=== PATIENT | female | born 1945 | race Caucasian/White ===

== ENCOUNTER → 2016-05-23 | Outpatient (CLI) | payer OTHER, MEDICARE ==
[~2016-05-23] VITALS: Ht 160 cm; Wt 73.9 kg
[~2016-05-23] MED LIST: ADULT LOW DOSE81 MG PO; ALLEGRA60 MG PO; APAP500 PO; BIOTIN5 M1 PO; DEXILANT60 MG PO; OXYCODONE-ACET1 EACH PO; PRESERVISION T1 EACH PO; PROBIOTIC FORM1 EACH PO; PROTONIX40 M2 PO; TUMS PO
--- NOTE | ~2016-05-23 | HPC ---
[facility] [place] [address] PAIN MANAGEMENT CONSULTATION Name: ELEANOR REEDER Room #: REG SUZANNE Son.#: [id number] Admission: 05/23/16 Attend Phys: Hugo Lange DO Discharge: Date of : 43 Report #: [id number] THIS REPORT FOR: //name// CC: Hugo CONLEY Yue Javi DATE OF SERVICE: 05/23/2016 DATE OF SERVICE: 05/23/2016 CHIEF COMPLAINT: Low back pain, left anterior thigh pain. HISTORY OF PRESENT ILLNESS: As you know, the patient is a very pleasant 71-year-old female, who returns today in followup visit with recurrent low back pain, left anterior thigh pain and weakness. She today, places pain score at 4/10. States 80% improvement in overall pain with the epidural injection provided at last visit. She was returned today in followup visit requesting next in a series of epidural injections in hopes of improving pain further. She denies new injury or new trauma that may have led to continuation of symptoms. ALLERGIES: LATEX. CURRENT MEDICATIONS: Acetaminophen, calcium carbonate, biotin, oxycodone, fexofenadine, Dexilant, aspirin. SOCIAL HISTORY: The patient denies tobacco, IV or illicit drug use. Admits to 2 alcohol beverages per week. She is unaccompanied today. PHYSICAL EXAMINATION: GENERAL: Well developed, well nourished, well hydrated 71-year-old female appearing stated age, placing current pain score 4-5/10. HEENT: Normocephalic, atraumatic. Pupils equal, round, reactive to light. Extraocular muscles are intact. Sclerae nonicteric, without injection. Speech is fluent. EXTREMITIES: Show no clubbing, no cyanosis, no edema. MUSCULOSKELETAL: Lower extremity strength does appear equal and symmetrical, but there is some giveaway strength noted with hip flexion on the left when compared to the right. There is decreased tactile sensation along the anterior thigh in the left when compared to the right. Seated straight leg raising negative. Supine straight leg raising positive on the left. Ebony's test negative. Modified Gaenslen's positive for axial low back pain. Gait appears normal. Station normal. ASSESSMENT: [address] [address] PAIN MANAGEMENT CONSULTATION Name: ELEANOR REEDER [facility] [id number] Admission: 05/23/16 Attend Phys: Hugo Lange DO Discharge: Date of : 43 Report #: [id number] 1. Symptomatic lumbar radiculopathy. 2. Displacement of lumbar intervertebral disk with radiculopathy. 3. Lumbosacral spondylosis with radiculopathy. 4. Chronic intractable pain. PLAN: 1. The patient returns today in followup visit having noted 80% improvement in overall pain with the epidural injection provided at the last visit. She returns today requesting next in the series of epidural injection to build on success of previous intervention. The patient was advised risks and benefits of the procedure. States she understood and wished to proceed. 2. The patient required no changes in medication therapy at today's visit. She is to continue current medical management as directed. 3. The patient and I did discuss that if the weakness in the left anterior thigh continues and she begins to experience no improvement in symptoms with this epidural injection, would recommend an MRI of the lumbar spine without contrast to be obtained to assess the pathology that is there and determine how much of a change there has been since our previous imaging and whether or not more aggressive treatment options may be necessary. She will contact our clinic if she notes no improvement with today's epidural injection. PROCEDURE NOTE DESCRIPTION OF PROCEDURE: L3-L4 left paramedian epidural steroid injection under fluoroscopic guidance. This is the first procedure of the second series that the patient is undergoing. After obtaining written consent, the patient was taken back to the fluoroscopy suite, placed in a prone position with pillow under the abdomen to decrease lumbar lordosis. The skin overlying the lumbosacral area was then prepped and draped in aseptic fashion. The L3-4 vertebral interspace was then identified by AP fluoroscopy. The skin and subcutaneous tissue overlying the target site of injection was anesthetized with 3 mL 1% lidocaine. A 20-gauge 3-1/2 inches Tuohy needle was then advanced under fluoroscopic guidance towards the epidural space using a left paramedian approach. The epidural space was identified using loss of resistance to air technique. After negative aspiration for heme or cerebrospinal fluid, a total of 1 mL of Omnipaque was injected. A lumbar epidurogram was confirmed using both AP and lateral fluoroscopy. After negative aspiration for heme or cerebrospinal fluid, 5 mL of solution containing 2 mL 40 mg per mL, 80 mg total triamcinolone, 3 mL of lidocaine 1% was injected in increments. Contrast spread was noted posterior epidural space. The needle was then retracted approximately half way and needle tract flushed with 1 mL of 1% lidocaine. Needle was then removed. There were no apparent sensory or motor deficits in the lower extremity [address] [address] PAIN MANAGEMENT CONSULTATION Name: ELEANOR REEDER Room #: REG SUZANNE Light#: [id number] Admission: 05/23/16 Attend Phys: Hugo Lange DO Discharge: Date of : 43 Report #: [id number] following the procedure. A sterile bandage was placed over the injection site. The heart rate, pulse, oximetry and blood pressure were continuously monitored after the procedure. There were no apparent complications. The patient tolerated the procedure well and was carefully escorted to the recovery room in stable condition. There were no apparent complications. After meeting discharge criteria, the patient was then discharged home. <ELECTRONICALLY SIGNED> By: Hugo Lange DO 05/23/16 1316 1003 1134 Hugo Lange DO /nt
[2016-05-23 09:13] VITALS: BP 126/76
== END | disposition home or self-care (01) ==
LOC: PAIN 05:31
DX: M51.16 Intervertebral disc disorders with radiculopathy, lumbar region (principal); M47.27 Other spondylosis with radiculopathy, lumbosacral region; G89.29 Other chronic pain

== ENCOUNTER → 2016-08-22 | Outpatient (CLI) | payer OTHER, MEDICARE ==
[~2016-08-22] VITALS: Ht 160 cm; Wt 74.8 kg
[~2016-08-22] MED LIST changes: +PIROXICAM MC
--- NOTE | ~2016-08-22 | HPC ---
[facility] [place] [address] PAIN MANAGEMENT CONSULTATION Name: ELEANOR REEDER Room #: REG SUZANNE Son.#: [id number] Admission: 08/22/16 Attend Phys: Hugo Lange DO Discharge: Date of : 43 Report #: [id number] THIS REPORT FOR: //name// CC: Hugo Caldwell DATE OF SERVICE: 08/22/2016 REFERRING PHYSICIAN: Dr. Sivakumar Miller. CHIEF COMPLAINT: Low back pain and left anterior thigh pain. HISTORY OF PRESENT ILLNESS: As you know, the patient is a very pleasant 71-year-old female returning in followup visit, requesting to undergo repeat L4-L5, L5-S1 intra-articular facet injections on the left side. The patient was last seen in our clinic on 05/23/2016 and underwent this procedure and received excellent benefit in pain, lasting until just recently. She returns with a recurrence of symptoms without inciting injury or trauma. She indicates the pain is intermittent, deep and aching, exacerbated with activities and climbing stairs, improves with medications, the intra-articular facet injections and back brace. ALLERGIES: LATEX. CURRENT MEDICATIONS: Piroxicam, calcium carbonate, vitamin supplementation, biotin, and fexofenadine. SOCIAL HISTORY: The patient denies tobacco, IV or illicit drug use. Admits to 2 alcoholic beverages per week. She is unaccompanied today. PHYSICAL EXAMINATION: VITAL SIGNS: Blood pressure 115/54, pulse is 72, respiratory rate 16 and unlabored. The patient is 98% on room air. Height 5 feet 3 inches tall, weight 164.8 pounds, BMI calculated 29.2. GENERAL: Well-developed, well-nourished, and well-hydrated. A 71-year-old female appearing her stated age. She is placing pain score today at approximately 6/10. HEENT: Normocephalic and atraumatic. Pupils are equal, round, and reactive to light. Extraocular muscles are intact. EXTREMITIES: Show no clubbing, no cyanosis, no edema. MUSCULOSKELETAL: Seated straight leg raising negative. Supine straight leg raising is negative. Ebony's test is negative. Modified Gaenslen's is positive for axial low back pain. Ankle clonus negative. Babinski is negative. [address] [address] PAIN MANAGEMENT CONSULTATION Name: ELEANOR REEDER Room #: REG [facility] Kuldeep#: [id number] Admission: 08/22/16 Attend Phys: Hugo Lange DO Discharge: Date of : 43 Report #: [id number] ASSESSMENT: 1. Lumbosacral spondylosis without radiculopathy. 2. Chronic lumbar radiculopathy. 3. Chronic intractable pain. PLAN: 1. The patient has returned today in followup visit requesting to undergo repeat left L4-L5, L5-S1 intraarticular facet injections. The patient has done very well with these injections that were requested by her neurosurgery team in May. She returns today in followup visit requesting to undergo the next in the series in hopes of improving symptoms. She and I did discuss that if these injections do provide similar improvement, but her pain does return, we could consider moving forward with medial branch nerve blocks, radiofrequency lesioning to address the medial branch nerves at L4-L5 and L5-S1. She will consider this option. 2. No medication changes were made at today's visit. The patient to continue current medical therapy as previously prescribed. 3. The patient will return to our clinic on an as needed basis to address facet arthropathy pain on the left side. PROCEDURE NOTE DESCRIPTION OF PROCEDURE: Left L4-L5 and L5-S1 intra-articular facet injections under fluoroscopic guidance. This is the first procedure of the first series that the patient is undergoing. After obtaining written consent, the patient was taken back to the fluoroscopy suite and placed in a prone position with a pillow under the abdomen to decrease the lumbar lordosis and to facilitate needle entry into the facet joints. The skin overlying the lumbosacral area was prepped and draped in an aseptic fashion. AP and lateral fluoroscopic imaging was obtained. Optimal position of the fluoroscope occurred when the joint line was first visualized. The facet joints were identified radiographically directed adjacent to the superior articular process of the caudad vertebrae. The skin overlying the target sites of injection was anesthetized using 3 mL of 1% lidocaine. A 22-guage 3-1/2 inch spinal needle with a bent tip was advanced towards the L4-L5, L5-S1 facet joints on the left side under fluoroscopic guidance. The firm posterior capsule had its characteristic feel and the needle was advanced a few additional millimeters beyond the joint capsule into the joint space, but not into the articular cartilage. After the joint space was entered and aspiration was negative for heme or CSF, 0.2 mL of Omnipaque was injected demonstrating a characteristic facet arthrogram. After negative aspiration for heme or CSF, 1.5 mL of a solution containing 1 mL 40 mg per mL 40 mg total triamcinolone and 2 mL of bupivacaine 0.5% was slowly injected at each of 2 [facility] [address] [place] [address] PAIN MANAGEMENT CONSULTATION Name: ELEANOR REEDER Room #: REG SUZANNE Light#: [id number] Admission: 08/22/16 Attend Phys: Hugo Lange DO Discharge: Date of : 43 Report #: [id number] facets. The needle was then removed. There were no apparent complications. The patient tolerated the procedure well and was carefully escorted to the recovery room in stable condition. The VAS was 6/10 before the procedure and 3/10 ten minutes after the procedure. After meeting discharge criteria, the patient was discharged home. <ELECTRONICALLY SIGNED> By: Hugo Lange DO 08/30/16 1128 [id number] 1605 Hugo Lange DO /nt
[2016-08-22 09:32] VITALS: BP 115/54
== END ==
LOC: PAIN 06:56
DX: M47.27 Other spondylosis with radiculopathy, lumbosacral region (principal); G89.29 Other chronic pain

== ENCOUNTER → 2016-12-12 | Outpatient (CLI) | payer OTHER, MEDICARE ==
[~2016-12-12] VITALS: Ht 160 cm; Wt 73.4 kg
[~2016-12-12] MED LIST changes: +PERCOCET PO
--- NOTE | ~2016-12-12 | HPC ---
[facility] [place] [address] PAIN MANAGEMENT CONSULTATION Name: ELEANOR REEDER Room #: REG SUZANNE GambinoJyotsnaNadeenJyotsna#: [id number] Admission: 12/12/16 Attend Phys: Hugo Lange DO Discharge: Date of : 43 Report #: [id number] THIS REPORT FOR: //name// CC: BATSHEVA Caldwell DATE OF SERVICE: 12/12/2016 CHIEF COMPLAINT: Axial back pain and intermittent upper buttock pain. HISTORY OF PRESENT ILLNESS: As you know, the patient is a 71-year-old female who returns today in followup visit reporting pain score 3-4/10 up to 7-8/10 depending on activities. She indicates her pain is in the low back and mainly left upper buttock area. She reports with her previous injections an 85% improvement in overall pain. She returns today in followup visit requesting intra-articular facet injections similar to our previous evaluation and treatment. The patient did very well with the intra-articular facet injections at that visit. She has requested the repeat today. She denies new injury new trauma that may have led to symptoms. She states pain is exacerbated with standing, various activities, climbing stairs and bending; improves with medications, injections and utilizing a back brace. She returns today for left-sided L4-L5, L5-S1 intra-articular facet injections as our previous procedure have provided. ALLERGIES: LATEX. CURRENT MEDICATIONS: Paroxetine, calcium carbonate, multivitamins, biotin, fexofenadine. SOCIAL HISTORY: The patient denies tobacco, IV or illicit drug use. Admits to approximately 2 alcoholic beverages per week. She is unaccompanied today. IMAGING: No new imaging available. PHYSICAL EXAMINATION: VITAL SIGNS: Blood pressure 133/69, pulse 67, respiratory rate 20, unlabored. The patient is 98% on room air, height 5 feet 3 inches tall, weight 161.8 pounds, BMI calculated 28.7. GENERAL: Well developed, well nourished, well-hydrated 71-year-old female appearing stated age, pain is rated around 3-4/10 today. HEENT: Normocephalic, atraumatic. Pupils equal, round, reactive to light. Extraocular muscles are intact. Sclerae nonicteric, without injection. EXTREMITIES: Show no clubbing, no cyanosis, no edema. MUSCULOSKELETAL: Seated straight leg raising negative. Supine straight leg raising negative. Nilesh's test negative. Modified Gaenslen's positive for [facility] [address] [place] [address] PAIN MANAGEMENT CONSULTATION Name: ELEANOR REEDER Room #: REG [facility]#: [id number] Admission: 12/12/16 Attend Phys: Hugo Lange DO Discharge: Date of : 43 Report #: [id number] axial low back pain, left greater than right. Ankle clonus negative. Babinski is negative. Muscle bulk and tone symmetrical in lower extremities. ASSESSMENT: 1. Lumbosacral spondylosis without radiculopathy. 2. Chronic intractable pain. 3. Myofascial pain. PLAN: 1. The patient returns today in followup visit requesting a left L4-L5, L5-S1 intra-articular facet injections. The patient reports 85% improvement in overall pain with the previous injection. She has returned today without new injury, new trauma requesting this for treatment. 2. The patient was advised the risks and benefits of intra-articular facet injections. These risks include but are not necessarily limited to bleeding, bruising, infection, worsening pain, no relief of pain, also risk of temporary or permanent muscle weakness, temporary or permanent nerve damage, possible paralysis and . The patient states she understood and wished to proceed. 3. No medication changes were made at today's visit. 4. The patient to return to our clinic on an as needed basis for possible repeat intra-articular facet injections, medial branch nerve blocks and radiofrequency lesioning to address the medial branch of the lumbar spine. PROCEDURE NOTE: DESCRIPTION OF PROCEDURE: Left L4-L5, L5-S1 intra-articular facet injections under fluoroscopic guidance. This is the first procedure of the second series that the patient is undergoing. After obtaining written consent, the patient was taken back to the fluoroscopy suite and placed in a prone position with a pillow under the abdomen to decrease the lumbar lordosis and to facilitate needle entry into the facet joints. The skin overlying the lumbosacral area was prepped and draped in an aseptic fashion. AP and lateral fluoroscopic imaging was obtained. Optimal position of the fluoroscope occurred when the joint line was first visualized. The facet joints were identified radiographically directed adjacent to the superior articular process of the caudad vertebrae. The skin overlying the target site(s) of injection was anesthetized using 3 mL of 1% lidocaine. A 22-gauge, 3.5-inch spinal needle with a bent tip was advanced towards the L4-L5 and L5-S1 facet joints on the left side under fluoroscopic guidance. The firm posterior capsule had its characteristic feel and the needle was advanced a few additional millimeters beyond the joint capsule into the joint space, but not into the articular cartilage. After the joint space was entered and aspiration was negative for heme or CSF, 0.2 mL of Omnipaque was injected demonstrating a [facility] [address] [place] [address] PAIN MANAGEMENT CONSULTATION Name: ELEANOR REEDER Room #: REG [facility]#: [id number] Admission: 12/12/16 Attend Phys: Hugo Lange DO Discharge: Date of : 43 Report #: [id number] characteristic facet arthrogram. After negative aspiration for heme or CSF, 1.5 mL of a solution containing 1 mL 40 mg per mL 40 mg total triamcinolone and 0.5 mL bupivacaine 0.5% w as slowly injected at each of two facet(s). The needle(s) was then removed. There were no apparent complications. The patient tolerated the procedure well and was carefully escorted to the recovery room in stable condition. The VAS was 4/10 before the procedure and 2/10 ten minutes after the procedure. After meeting discharge criteria, the patient was discharged home. <ELECTRONICALLY SIGNED> By: Hugo Lange DO 12/22/16 0705 1313 1428 Hugo Lange DO /nt
[2016-12-12 09:29] VITALS: BP 133/69
== END | disposition home or self-care (01) ==
LOC: PAIN 07:04
DX: M47.817 Spondylosis without myelopathy or radiculopathy, lumbosacral region (principal); G89.29 Other chronic pain; M79.1 Myalgia; Z79.899 Other long term (current) drug therapy; Z88.8 Allergy status to other drugs, medicaments and biological substances